=== PATIENT | female | born 1965 | race Caucasian/White ===

== ENCOUNTER 2018-01-18 07:13 | Day surgery (SDC) | payer OTHER ==
[~2018-01-18] VITALS: Ht 160 cm; Wt 62.6 kg
[2018-01-18] MEDS ORDERED: OXYCODON-ACETA1 EAC2 PO (10:21)
[2018-01-18] MEDS ORDERED: MAPAP325 MG PO (10:21)
[2018-01-18] MEDS ORDERED: IBUPROFEN600 MG PO (10:21)
--- NOTE | 2018-01-18 10:30 | NUR ---
01/18/18 1030 Symone Castaneda 1006- PT ARRIVES TO PACU WITH OPA IN PLACE ON 10L VIA MASK. OXYGEN SAT 100% ON THIS. PT'S INITIAL BP IN THE 80'S SYSTOLICALLY. IRWIN BORJA AT THE BEDSIDE, AWARE OF THIS. PT UNROUSABLE TO PAINFUL STIMULI AT THIS TIME. 1010- PT'S BP REMAINS IN THE LOW 80'S SYSTOLICALLY. IRWIN BORJA LEFT TO GET EPENDRINE. PT IS MORE AROUSABLE AND REACHING TO REMOVE OPA. OPA REMOVED. OXYGEN TURNED DOWN TO 6L VIA MASK. OXYGEN SAT MAINTAINED AT 100% ON THIS. PT IS MAINTAINING HER AIRWAY. 1027- PT UNABLE TO MOVE HER TOES. CAN FEEL PRESSURE TO HER LEGS. REPORTS IT IS "LIGHT".
--- NOTE | 2018-01-18 11:24 | NUR ---
PT ARRIVES TO DS TREATMENT ROOM FROM PACU AWAKE AND ALERT. PT DENIES ANY PAIN OR N/V. PT FAMILY IN ON ARRIVAL. PT ABLE TO MOVE LEGS FREELY, BUT UNABLE TO BEAR WEIGHT TO AMBULATE. PT PROVIDED ICED WATER AND JELLO. PT ENCOURAGED TO USE CALL LIGHT WHEN SHE FEELS THE URGE TO VOID. WILL CONTINUE TO MONITOR SADDLE BLOCK.
--- NOTE | 2018-01-18 11:36 | NUR ---
PT USES CALL LIGHT TO ALERT RN OF THE URGE TO VOID. PT UP TO BR WITH RN ASSIST. PT AMBULATES, BUT IS UNSTEADY OF FEET AND STATES, "MY LEGS FEEL GOOD, JUST A LITTLE WOBBLY." PT ABLE TO VOID 100 MLS YELLOW URINE. PT BACK IN BED AND PROVIDED WARM BLANKET.
--- NOTE | 2018-01-18 12:24 | NUR ---
1210: PT REQUESTS ORAL ZOFRAN TO GO WITH PAIN MEDICATION ORDERED FOR HOME TO HELP COMBAT NAUSEA. DR. PLAZA CONTACTED AND AGREES TO PRESCRIBE ZOFRAN ODT 4MG AND PROVIDES HANDWRITTEN SCRIPT. DC CRITERIA MET PT IS ABLE TO AMBULATE WITH NO ASSISTANCE AND STATES, "LEGS FEEL PRETTY MUCH BACK TO NORMAL." PT GIVEN DC INSTRUCTIONS IN PRESENCE OF FAMILY, ALL QUESTIONS ANSWERED. PT DC'S VIA WC FROM DS TREATMENT ROOM HOME WITH FAMILY TO [place].
--- NOTE | 2018-01-18 12:40 | OR ---
[facility] [address], [place] [address] Signed DATE OF OPERATION: 01/18/2018 SURGEON: Jonh Plaza MD PREOPERATIVE DIAGNOSIS: Recurrent pilonidal disease with drainage. POSTOPERATIVE DIAGNOSIS: Recurrent pilonidal disease with drainage. PROCEDURES: 1. Exam under anesthesia. 2. Excision of pilonidal disease. ANESTHESIA: Saddle block with intravenous sedation; Jonh Adler CRNA and local 20 mL of 0.25% Marcaine with epinephrine. INDICATION: This 53-year-old white woman is a patient of Dr. Florez of [place], [place]. She underwent pilonidal cystectomy in 1980 for rather advanced disease what it sounds of it. She had a prolonged wound healing, and so forth. She has recently developed a swelling at the site of prior pilonidal excision, the size of a golf ball, which has spontaneous drainage. She was seen by Dr. Florez, who recognized her problem as a recurrent pilonidal cyst. She was treated with antibiotics and now has presented for definitive excision of the recurrent disease. She understands the risks of bleeding, infection, recurrence and so forth and need for wound care and wished to proceed. FINDINGS: The amount of tissue that was troubled was rather small compared to her prior incision from the past. Excision was undertaken of diseased tissue down to the post sacral fascia. There was no sign of cellulitis or other problem. Complete excision has been accomplished. Wound was packed and will heal by delayed secondary intention. DESCRIPTION OF PROCEDURE: The patient was given a saddle block anesthetic and taken to the operating room and placed in a prone jackknife position. Intravenous sedation was given. Preoperative antibiotic cefoxitin was given. The position of the site did not require buttocks taped apart. Clipping was undertaken in this sacral area. The area was prepared with a DuraPrep solution and draped sterilely. The area in question had a punctum and a small Electronically Signed By: JONH PLAZA MD 01/18/18 1240 PATIENT NAME: MARIA ELENA DON OPERATIVE REPORT DATE OF : 63 REPORT #: [id number] PHYSICIAN: JONH PLAZA MD PCP: PAUL FLOREZ MD REPORT IS CONFIDENTIAL AND NOT TO BE RELEASED WITHOUT AUTHORIZATION [facility] [address], [place] [address] Signed amount of inflammatory fluid drainage. Narrow elliptical excision was undertaken limiting the excision completely to the internatal cleft essentially. Wide excision was undertaken deeply to the post sacral fascia incorporating all diseased tissue. Electrocautery was used for hemostasis. Irrigation was undertaken and 20 mL of 0.25% Marcaine with epinephrine was injected locally. The wound was packed with a single applied coarse gauze. The patient was returned to the supine position, ultimately taken to recovery room in good condition having suffered no complications. Sponge, needle, and instrument counts reported as correct x3. MD ANGELIC Beltran/TALIB /[id number] cc: Paul Florez MD Copies: PAUL FLOREZ MD ~ Electronically Signed By: JONH PLAZA MD 01/18/18 1240 PATIENT NAME: MARIA ELENA DON OPERATIVE REPORT DATE OF : 63 REPORT #: [id number] PHYSICIAN: JONH PLAZA MD PCP: PAUL FLOREZ MD REPORT IS CONFIDENTIAL AND NOT TO BE RELEASED WITHOUT AUTHORIZATION
== END 2018-01-18 12:29 | disposition home or self-care (01) ==
LOC: DS 07:13
PROVIDERS: Surgery
PROC: 0JB90ZZ Excision of Buttock Subcutaneous Tissue and Fascia, Open Approach (ICD-10-PCS; principal; 2018-01-18 09:00)
DX: L05.01 Pilonidal cyst with abscess (principal); D64.9 Anemia, unspecified; I47.1 Supraventricular tachycardia; Z88.5 Allergy status to narcotic agent; Z87.891 Personal history of nicotine dependence
CPT/HCPCS: 00910; J0694; J1100; J2250; J2405; J2704; J2765; J3010; J7120